=== PATIENT | female | born 1970 | race Caucasian/White ===

== ENCOUNTER 2018-05-07 17:50 | Emergency (ER) | payer MEDICAID ==
[~2018-05-07] VITALS: Ht 172.7 cm; Wt 136.0 kg
[~2018-05-07 17:50] MED LIST: BAC10T PO; CLIN150C2 PO; DEXL60CA3 PO; FERR325T28 PO; FURO-150 PO; IBUP-1984 PO; LEVA15HF4 IH; METF500T7 PO; ONDA4TAB9 PO; POTA8TAB46 PO; PRAM1TAB4 PO; TRAM50TA2 PO; TRIA10PO3 MC; VENL-190 PO
[2018-05-07] MEDS ORDERED: HYDR28CR14 TOP (18:05)
== END 2018-05-07 18:18 | disposition home or self-care (01) ==
LOC: ER 17:51
DX: R21 Rash and other nonspecific skin eruption (principal); L25.9 Unspecified contact dermatitis, unspecified cause; J44.9 Chronic obstructive pulmonary disease, unspecified; E11.9 Type 2 diabetes mellitus without complications; F12.90 Cannabis use, unspecified, uncomplicated; Z79.2 Long term (current) use of antibiotics; Z79.899 Other long term (current) drug therapy
CPT/HCPCS: 99282

== ENCOUNTER 2018-07-07 13:35 | Emergency (ER) | payer MEDICAID ==
[~2018-07-07] VITALS: Ht 172.7 cm; Wt 131.8 kg
[~2018-07-07 13:35] MED LIST changes: +HYDR28CR14 TOP
[2018-07-07 14:43] VITALS: BP 129/69
== END 2018-07-07 17:02 | disposition left against medical advice (07) ==
LOC: ER 13:36
DX: M54.5 Low back pain (principal); Z53.21 Procedure and treatment not carried out due to patient leaving prior to being seen by health care provider

== ENCOUNTER 2021-12-06 15:47 | Emergency (ER) | payer MEDICAID ==
[~2021-12-06] VITALS: Ht 172.7 cm; Wt 145.4 kg
[~2021-12-06 15:47] MED LIST changes: +METF-900 PO; -METF500T7 PO
[2021-12-06] MEDS ORDERED: insulin regular, human 10 units/0.1 ml syringe IV ONE ×3 (16:25→18:05)
[2021-12-06] MEDS ORDERED: normal saline 1000ML IV soln IVB ONE ×3 (16:25→18:05)
[2021-12-06 16:37] LABS: BASOPHILS # (AUTO) 0.1 X10'3 (0-0.2); BASOPHILS % (AUTO) 0.7 % (0-1); EOSINOPHILS # (AUTO) 0.1 X10'3 (0-0.9); EOSINOPHILS % (AUTO) 1.5 % (0-6); HEMATOCRIT 45.6 % (35.0-45.0); LYMPHOCYTES # (AUTO) 2.8 X10'3 (1.1-4.8); LYMPHOCYTES % (AUTO) 38.3 % (21-51); MEAN CORPUSCULAR HEMOGLOBIN 27.1 PG (27.0-31.0); MEAN CORPUSCULAR HGB CONC 32.8 g/dL (33.0-36.5); MEAN CORPUSCULAR VOLUME 82.6 FL (78-98); MEAN PLATELET VOLUME 8.9 FL (7.4-10.4); MONOCYTES # (AUTO) 0.5 X10'3 (0-0.9); MONOCYTES % (AUTO) 6.2 % (2-12); NEUTROPHILS # (AUTO) 3.9 X10'3 (1.8-7.7); NEUTROPHILS % (AUTO) 53.3 % (42-75); PLATELET COUNT 200 X10'3 (140-440); RED BLOOD COUNT 5.51 X10'6 (4.20-5.60); RED CELL DISTRIBUTION WIDTH 15.1 % (11.5-14.5); WHITE BLOOD COUNT 7.3 X10'3 (4.5-11.0)
[2021-12-06 16:45] LABS: ALANINE AMINOTRANSFERASE 26 U/L (12-78); ALBUMIN 3.4 G/DL (3.4-5.0); ALBUMIN/GLOBULIN RATIO 0.7 (1.1-1.5); ALKALINE PHOSPHATASE 192 IU/L (46-116); ANION GAP 10 (8-16); ASPARTATE AMINO TRANSFERASE 20 U/L (10-37); BILIRUBIN,TOTAL 0.4 MG/DL (0.1-1.0); BLOOD UREA NITROGEN 15 MG/DL (7-18); BUN/CREATININE RATIO 12.2 (6.6-38.0); CALCIUM 9.9 MG/DL (8.5-10.1); CHLORIDE 94 MMOL/L (99-107); CREATININE 1.23 MG/DL (0.40-0.90); POTASSIUM 4.4 MMOL/L (3.5-5.1); SODIUM 132 MMOL/L (135-145); TOTAL CARBON DIOXIDE 27.7 MMOL/L (24-32); TOTAL PROTEIN 8.5 G/DL (6.4-8.2); eGFR 46 ML/MIN
[2021-12-06 17:02] LABS: GLUCOSE 754 MG/DL (70-104)
[2021-12-06 17:02] LABS: CLARITY,URINE CLEAR (Clear); COLOR,URINE YELLOW (Yellow); GLUCOSE, URINE >=1000 mg/dl (Neg); KETONES,URINE NEGATIVE (Neg); LEUKOCYTE ESTERASE ,URINE NEGATIVE (Neg); NITRITES, URINE NEGATIVE (Neg); OCCULT BLOOD,URINE NEGATIVE (Neg); PH,URINE 6.5 (4.8-8.0); PROTEIN,URINE TRACE mg/dl (Neg); UROBILINOGEN,URINE 0.2 E.U/dL (0.2-1.0)
[2021-12-06 17:05] LABS: UA COLLECTION TYPE CLN CATCH MIDSTREAM
[2021-12-06 17:07] LABS: MAGNESIUM 1.5 MG/DL (1.5-2.4)
[2021-12-06 17:08] LABS: SQUAMOUS EPITHELIAL CELL,UR MODERATE /LPF (FEW)
[2021-12-06 17:11] LABS: BACTERIA,URINE FEW /HPF (Neg); RBC,URINE NONE SEEN /HPF (0-2); YEAST MANY /HPF (NEGATIVE)
[2021-12-06 17:13] LABS: WBC,URINE 0-4 /HPF (0-4)
[2021-12-06] MEDS ORDERED: insulin glargine (Lantus) pen - multi-dose SQ ONE (17:25)
[2021-12-06] MEDS ORDERED: METF-436 PO (17:32)
[2021-12-06] MEDS ORDERED: INSU100V9 SQ (17:32)
[2021-12-06 18:59] VITALS: BP 137/90
== END 2021-12-06 19:57 | disposition home or self-care (01) ==
LOC: ER 15:48
DX: E11.65 Type 2 diabetes mellitus with hyperglycemia (principal); R06.02 Shortness of breath; E78.00 Pure hypercholesterolemia, unspecified; J44.9 Chronic obstructive pulmonary disease, unspecified; F12.90 Cannabis use, unspecified, uncomplicated; Z72.89 Other problems related to lifestyle; Z79.4 Long term (current) use of insulin; Z79.899 Other long term (current) drug therapy
CPT/HCPCS: 36415; 80053; 81001; 82948; 83735; 85025; 96361; 96372; 96374; 96376; 99284; J1815; J7030

== ENCOUNTER 2021-12-08 15:49 | Emergency (ER) | payer MEDICAID ==
[~2021-12-08] VITALS: Ht 172.7 cm; Wt 140.9 kg
[~2021-12-08 15:49] MED LIST changes: +INSU100V9 SQ; +METF-436 PO
[2021-12-08 16:17] VITALS: BP 120/91
[2021-12-08 16:50] LABS: BASOPHILS # (AUTO) 0.1 X10'3 (0-0.2); BASOPHILS % (AUTO) 1.1 % (0-1); EOSINOPHILS # (AUTO) 0.2 X10'3 (0-0.9); EOSINOPHILS % (AUTO) 1.9 % (0-6); HEMATOCRIT 40.9 % (35.0-45.0); HEMOGLOBIN 13.4 g/dl (12.0-16.0); LYMPHOCYTES # (AUTO) 3.2 X10'3 (1.1-4.8); LYMPHOCYTES % (AUTO) 35.7 % (21-51); MEAN CORPUSCULAR HEMOGLOBIN 26.5 PG (27.0-31.0); MEAN CORPUSCULAR HGB CONC 32.7 g/dL (33.0-36.5); MEAN CORPUSCULAR VOLUME 81.1 FL (78-98); MEAN PLATELET VOLUME 8.8 FL (7.4-10.4); MONOCYTES # (AUTO) 0.6 X10'3 (0-0.9); MONOCYTES % (AUTO) 7.2 % (2-12); NEUTROPHILS # (AUTO) 4.9 X10'3 (1.8-7.7); NEUTROPHILS % (AUTO) 54.1 % (42-75); PLATELET COUNT 216 X10'3 (140-440); RED BLOOD COUNT 5.04 X10'6 (4.20-5.60); RED CELL DISTRIBUTION WIDTH 15.3 % (11.5-14.5)
[2021-12-08 17:04] LABS: ALANINE AMINOTRANSFERASE 21 U/L (12-78); ALBUMIN 3.2 G/DL (3.4-5.0); ALBUMIN/GLOBULIN RATIO 0.7 (1.1-1.5); ALKALINE PHOSPHATASE 133 IU/L (46-116); ANION GAP 11 (8-16); ASPARTATE AMINO TRANSFERASE 15 U/L (10-37); BILIRUBIN,TOTAL 0.5 MG/DL (0.1-1.0); BLOOD UREA NITROGEN 14 MG/DL (7-18); BUN/CREATININE RATIO 12.4 (6.6-38.0); CALCIUM 9.1 MG/DL (8.5-10.1); CHLORIDE 99 MMOL/L (99-107); CREATININE 1.13 MG/DL (0.40-0.90); SODIUM 133 MMOL/L (135-145); TOTAL CARBON DIOXIDE 22.7 MMOL/L (24-32); TOTAL PROTEIN 7.8 G/DL (6.4-8.2); eGFR 51 ML/MIN
[2021-12-08 17:08] LABS: GLUCOSE 480 MG/DL (70-104)
== END 2021-12-08 20:04 | disposition left against medical advice (07) ==
LOC: ER 15:49
DX: M25.561 Pain in right knee (principal); Z53.21 Procedure and treatment not carried out due to patient leaving prior to being seen by health care provider
CPT/HCPCS: 36415; 80053; 82948; 85025

== ENCOUNTER 2022-01-09 07:14 | Emergency (ER) | payer MEDICAID ==
[~2022-01-09] VITALS: Ht 172.7 cm; Wt 129.6 kg
[2022-01-09] MEDS ORDERED: acetaminophen 325mg tablet PO STA (08:12)
[2022-01-09] MEDS ORDERED: ketorolac trometh. 30mg/ml inj. IV ONE (08:15)
[2022-01-09] MEDS ORDERED: normal saline 1000ML IV soln IV ONE (08:15)
[2022-01-09 10:22] LABS: BASOPHILS % (AUTO) 0.5 % (0-1); EOSINOPHILS # (AUTO) 0.1 X10'3 (0-0.9); EOSINOPHILS % (AUTO) 1.2 % (0-6); HEMATOCRIT 40.1 % (35.0-45.0); HEMOGLOBIN 13.4 g/dl (12.0-16.0); LYMPHOCYTES # (AUTO) 2.4 X10'3 (1.1-4.8); LYMPHOCYTES % (AUTO) 25.9 % (21-51); MEAN CORPUSCULAR HEMOGLOBIN 27.3 PG (27.0-31.0); MEAN CORPUSCULAR HGB CONC 33.3 g/dL (33.0-36.5); MEAN CORPUSCULAR VOLUME 81.9 FL (78-98); MEAN PLATELET VOLUME 8.3 FL (7.4-10.4); MONOCYTES # (AUTO) 0.7 X10'3 (0-0.9); MONOCYTES % (AUTO) 7.6 % (2-12); NEUTROPHILS % (AUTO) 64.8 % (42-75); PLATELET COUNT 182 X10'3 (140-440); RED CELL DISTRIBUTION WIDTH 15.2 % (11.5-14.5); WHITE BLOOD COUNT 9.3 X10'3 (4.5-11.0)
[2022-01-09 10:35] LABS: ALANINE AMINOTRANSFERASE 16 U/L (12-78); ALBUMIN 2.9 G/DL (3.4-5.0); ALBUMIN/GLOBULIN RATIO 0.7 (1.1-1.5); ALKALINE PHOSPHATASE 99 IU/L (46-116); ANION GAP 8 (8-16); ASPARTATE AMINO TRANSFERASE 13 U/L (10-37); BILIRUBIN,TOTAL 0.3 MG/DL (0.1-1.0); BLOOD UREA NITROGEN 9 MG/DL (7-18); BUN/CREATININE RATIO 14.8 (6.6-38.0); CALCIUM 8.9 MG/DL (8.5-10.1); CHLORIDE 105 MMOL/L (99-107); CREATININE 0.61 MG/DL (0.40-0.90); GLUCOSE 141 MG/DL (70-104); MAGNESIUM 1.3 MG/DL (1.5-2.4); POTASSIUM 3.8 MMOL/L (3.5-5.1); SODIUM 140 MMOL/L (135-145); TOTAL CARBON DIOXIDE 26.9 MMOL/L (24-32); TOTAL PROTEIN 7.3 G/DL (6.4-8.2); eGFR > 90 ML/MIN
[2022-01-09 13:39] VITALS: BP 125/86
== END 2022-01-09 13:50 | disposition home or self-care (01) ==
LOC: ER 07:15
DX: B34.9 Viral infection, unspecified (principal); Z20.822 Contact with and (suspected) exposure to COVID-19; E78.00 Pure hypercholesterolemia, unspecified; E11.9 Type 2 diabetes mellitus without complications; F17.200 Nicotine dependence, unspecified, uncomplicated; F12.10 Cannabis abuse, uncomplicated; F15.10 Other stimulant abuse, uncomplicated; Z79.1 Long term (current) use of non-steroidal anti-inflammatories (NSAID); Z79.82 Long term (current) use of aspirin; Z79.899 Other long term (current) drug therapy
CPT/HCPCS: 36415; 71045; 80053; 83735; 85025; 87081; 87502; 87503; 87635; 87880; 99284; C9803

== ENCOUNTER 2023-01-30 16:15 | Emergency (ER) | payer MEDICAID ==
[~2023-01-30] VITALS: Ht 172.7 cm; Wt 125.5 kg
[2023-01-30 17:57] VITALS: BP 99/51; PULSE 88; RESP 18; O2SAT 94
[2023-01-30] MEDS ORDERED: cyclobenzaprine 10mg tablet PO ONE (19:25)
[2023-01-30] MEDS ORDERED: ketorolac trometh. 30mg/ml inj. IV ONE (19:25)
[2023-01-30] MEDS ORDERED: LIDOcaine 5% patch TP STA (19:25)
[2023-01-30] MEDS ORDERED: CYCL-1 PO (19:27)
[2023-01-30] MEDS ORDERED: IBUP-1986 PO (19:27)
== END 2023-01-30 20:02 | disposition home or self-care (01) ==
LOC: ER 16:16
DX: G89.29 Other chronic pain (principal); M54.59 Other low back pain; Z79.899 Other long term (current) drug therapy; Z79.1 Long term (current) use of non-steroidal anti-inflammatories (NSAID); Z79.2 Long term (current) use of antibiotics
CPT/HCPCS: 82948; 96374; 99284; J1885; 96372; A4615

== ENCOUNTER 2023-06-23 07:37 | Emergency (ER) | payer MEDICAID ==
[~2023-06-23] VITALS: Ht 172.7 cm; Wt 126.5 kg
[~2023-06-23 07:37] MED LIST changes: +CYCL-1 PO; +IBUP-1986 PO
[2023-06-23] MEDS ORDERED: DOXY-457 PO (08:35)
[2023-06-23] MEDS ORDERED: IBUP-1984 PO (08:35)
[2023-06-23 09:09] VITALS: BP 134/78; PULSE 90; RESP 16; TEMP 98.2; O2SAT 92
== END 2023-06-23 09:09 | disposition home or self-care (01) ==
LOC: ER 07:38
DX: S52.124A Nondisplaced fracture of head of right radius, initial encounter for closed fracture (principal); L03.031 Cellulitis of right toe; E78.00 Pure hypercholesterolemia, unspecified; J44.9 Chronic obstructive pulmonary disease, unspecified; G89.29 Other chronic pain; F12.90 Cannabis use, unspecified, uncomplicated; F15.90 Other stimulant use, unspecified, uncomplicated; Z56.0 Unemployment, unspecified; Z59.00 Homelessness unspecified; Z79.899 Other long term (current) drug therapy; Z79.2 Long term (current) use of antibiotics; W01.0XXA Fall on same level from slipping, tripping and stumbling without subsequent striking against object, initial encounter; Z91.81 History of falling; Y93.89 Activity, other specified; Y92.89 Other specified places as the place of occurrence of the external cause; Y99.8 Other external cause status
CPT/HCPCS: 29105; 73080; 99284; A4565; A6449

== ENCOUNTER 2023-06-27 10:19 | Emergency (ER) | payer MEDICAID ==
[~2023-06-27] VITALS: Ht 172.7 cm; Wt 125.0 kg
[~2023-06-27 10:19] MED LIST changes: +DOXY-457 PO
[2023-06-27 10:27] VITALS: TEMP 96.8
[2023-06-27] MEDS ORDERED: ketorolac trometh. 30mg/ml inj. IM ONE (12:55)
[2023-06-27 13:15] VITALS: BP 129/69; PULSE 72; RESP 18; O2SAT 96
== END 2023-06-27 18:04 | disposition home or self-care (01) ==
LOC: ER 10:19
DX: S52.124A Nondisplaced fracture of head of right radius, initial encounter for closed fracture (principal); S63.501A Unspecified sprain of right wrist, initial encounter; E78.00 Pure hypercholesterolemia, unspecified; J44.9 Chronic obstructive pulmonary disease, unspecified; E11.9 Type 2 diabetes mellitus without complications; G89.29 Other chronic pain; F12.90 Cannabis use, unspecified, uncomplicated; F15.90 Other stimulant use, unspecified, uncomplicated; Z56.0 Unemployment, unspecified; Z59.00 Homelessness unspecified; Z79.899 Other long term (current) drug therapy; Z79.2 Long term (current) use of antibiotics; W01.0XXA Fall on same level from slipping, tripping and stumbling without subsequent striking against object, initial encounter; Y93.89 Activity, other specified; Y92.89 Other specified places as the place of occurrence of the external cause; Y99.8 Other external cause status
CPT/HCPCS: 29105; 73090; 73110; 96372; 99284; J1885; A4565; A6446; A6449

== ENCOUNTER 2023-10-04 07:58 | Emergency (ER) | payer MEDICAID ==
[~2023-10-04] VITALS: Ht 167.6 cm; Wt 132.0 kg
[~2023-10-04 07:58] MED LIST changes: -DOXY-457 PO
[2023-10-04 08:10] VITALS: BP 150/90; TEMP 98.8
[2023-10-04 08:39] LABS: BASOPHILS % (AUTO) 0.6 % (0-1); EOSINOPHILS # (AUTO) 0.3 X10'3 (0-0.9); EOSINOPHILS % (AUTO) 4.6 % (0-6); HEMATOCRIT 36.5 % (35.0-45.0); HEMOGLOBIN 11.9 g/dl (12.0-16.0); LYMPHOCYTES # (AUTO) 2.1 X10'3 (1.1-4.8); LYMPHOCYTES % (AUTO) 28.4 % (21-51); MEAN CORPUSCULAR HEMOGLOBIN 26.4 PG (27.0-31.0); MEAN CORPUSCULAR HGB CONC 32.7 g/dL (33.0-36.5); MEAN CORPUSCULAR VOLUME 80.8 FL (78-98); MEAN PLATELET VOLUME 8.1 FL (7.4-10.4); MONOCYTES # (AUTO) 0.6 X10'3 (0-0.9); NEUTROPHILS # (AUTO) 4.3 X10'3 (1.8-7.7); NEUTROPHILS % (AUTO) 58.4 % (42-75); PLATELET COUNT 157 X10'3 (140-440); RED BLOOD COUNT 4.51 X10'6 (4.20-5.60); RED CELL DISTRIBUTION WIDTH 15.2 % (11.5-14.5); WHITE BLOOD COUNT 7.4 X10'3 (4.5-11.0)
[2023-10-04 08:59] LABS: D-DIMER 0.32 MG/L FEU (0-0.50)
[2023-10-04] MEDS: magnesium 2GM in 50ml NS 50 ML IV ONE (09:09)
[2023-10-04] MEDS: methylPREDNISolone sod succ 125mg/2ml vial IV ONE (09:09)
[2023-10-04 09:15] LABS: ALBUMIN 2.6 G/DL (3.4-5.0); ANION GAP 10 (8-16); BLOOD UREA NITROGEN 10 MG/DL (7-18); BUN/CREATININE RATIO 11.9 (10.0-20.0); CALCIUM 8.9 MG/DL (8.5-10.1); CHLORIDE 107 MMOL/L (99-107); CREATININE 0.84 MG/DL (0.40-0.90); GLUCOSE 176 MG/DL (70-104); POTASSIUM 3.9 MMOL/L (3.5-5.1); PRO BRAIN NATRIURETIC PEPTIDE 231 PG/ML (0-125); SODIUM 146 MMOL/L (135-145); TOTAL CARBON DIOXIDE 29.3 MMOL/L (24-32); eCRCL 73 ML/MIN; eGFR 71 ML/MIN
[2023-10-04] MEDS: ipratropium/albuterol 3ml nebule NEB ONE (09:21)
[2023-10-04] MEDS: albuterol 2.5 MG/3 ML nebule NEB ONE (09:21)
[2023-10-04 09:28] VITALS: PULSE 96; PULSE 98; RESP 20; O2SAT 91; O2SAT 92; O2SAT 96
[2023-10-04] MEDS ORDERED: LORazepam 2 mg/ml vial IV ONE (10:50)
[2023-10-04] MEDS ORDERED: PRED20TA PO (10:51)
[2023-10-04] MEDS ORDERED: ALB0.5UD NEB (10:51)
[2023-10-04 11:23] VITALS: PULSE 93; RESP 18; RESP 20; O2SAT 96; O2SAT 97
[2023-10-04] MEDS: pramipexole 0.25mg tablet PO STA (11:38)
[2023-10-04 11:39] VITALS: O2SAT 92
== END 2023-10-04 11:41 | disposition home or self-care (01) ==
LOC: ER 07:59
DX: J44.1 Chronic obstructive pulmonary disease with (acute) exacerbation (principal); Z20.822 Contact with and (suspected) exposure to COVID-19; E78.00 Pure hypercholesterolemia, unspecified; E11.9 Type 2 diabetes mellitus without complications; F12.90 Cannabis use, unspecified, uncomplicated; F15.90 Other stimulant use, unspecified, uncomplicated; Z79.899 Other long term (current) drug therapy; Z79.1 Long term (current) use of non-steroidal anti-inflammatories (NSAID); Z79.2 Long term (current) use of antibiotics
CPT/HCPCS: 36415; 71045; 80048; 83880; 84484; 85025; 85379; 87811; 93005; 94640; 96365; 96366; 96375; 99285; J2930; J3475; 94760

== ENCOUNTER 2023-11-29 09:07 | Emergency (ER) | payer MEDICAID ==
[~2023-11-29] VITALS: Ht 172.7 cm; Wt 122.0 kg
[2023-11-29 09:11] VITALS: BP 144/74; PULSE 86; RESP 16; TEMP 98.4; O2SAT 92
[2023-11-29 10:07] LABS: BASOPHILS # (AUTO) 0.1 X10'3 (0-0.2); BASOPHILS % (AUTO) 0.7 % (0-1); EOSINOPHILS # (AUTO) 0.3 X10'3 (0-0.9); EOSINOPHILS % (AUTO) 3.1 % (0-6); HEMATOCRIT 38.4 % (35.0-45.0); HEMOGLOBIN 12.7 g/dl (12.0-16.0); LYMPHOCYTES # (AUTO) 2.9 X10'3 (1.1-4.8); LYMPHOCYTES % (AUTO) 34.1 % (21-51); MEAN CORPUSCULAR HEMOGLOBIN 26.8 PG (27.0-31.0); MEAN CORPUSCULAR HGB CONC 33.2 g/dL (33.0-36.5); MEAN CORPUSCULAR VOLUME 80.8 FL (78-98); MEAN PLATELET VOLUME 8.3 FL (7.4-10.4); MONOCYTES # (AUTO) 0.4 X10'3 (0-0.9); MONOCYTES % (AUTO) 5.2 % (2-12); NEUTROPHILS # (AUTO) 4.9 X10'3 (1.8-7.7); NEUTROPHILS % (AUTO) 56.9 % (42-75); PLATELET COUNT 218 X10'3 (140-440); RED BLOOD COUNT 4.75 X10'6 (4.20-5.60); RED CELL DISTRIBUTION WIDTH 16.9 % (11.5-14.5); WHITE BLOOD COUNT 8.6 X10'3 (4.5-11.0)
[2023-11-29 10:25] LABS: ALANINE AMINOTRANSFERASE 19 U/L (12-78); ALBUMIN 3.2 G/DL (3.4-5.0); ALBUMIN/GLOBULIN RATIO 0.7 (1.1-1.5); ALKALINE PHOSPHATASE 114 IU/L (46-116); ANION GAP 9 (8-16); ASPARTATE AMINO TRANSFERASE 14 U/L (10-37); BILIRUBIN,TOTAL 0.4 MG/DL (0.1-1.0); BLOOD UREA NITROGEN 9 MG/DL (7-18); BUN/CREATININE RATIO 12.3 (10.0-20.0); C-REACTIVE PROTEIN 0.42 MG/DL (0.0-0.5); CALCIUM 9.5 MG/DL (8.5-10.1); CHLORIDE 106 MMOL/L (99-107); CREATININE 0.73 MG/DL (0.40-0.90); GLUCOSE 137 MG/DL (70-104); POTASSIUM 3.5 MMOL/L (3.5-5.1); SODIUM 142 MMOL/L (135-145); TOTAL CARBON DIOXIDE 26.8 MMOL/L (24-32); TOTAL PROTEIN 7.7 G/DL (6.4-8.2); eCRCL 91 ML/MIN; eGFR 84 ML/MIN
[2023-11-29 10:28] LABS: APTT 26 SECONDS (22-32); PROTHROMBIN TIME 10.7 SECONDS (9.0-12.0)
== END 2023-11-29 22:02 | disposition left against medical advice (07) ==
LOC: ER 09:08
DX: M25.561 Pain in right knee (principal); Z53.21 Procedure and treatment not carried out due to patient leaving prior to being seen by health care provider
CPT/HCPCS: 36415; 73564; 80053; 83605; 85025; 85610; 85651; 85730; 86140; 87040

== ENCOUNTER 2024-01-26 21:23 | Emergency (ER) | payer MEDICAID ==
[~2024-01-26] VITALS: Ht 172.7 cm; Wt 125.0 kg
[2024-01-26 21:45] VITALS: TEMP 98.3
[2024-01-26] MEDS: ondansetron 4mg rapidly disintigrating tab PO ONE (23:47)
[2024-01-26] MEDS: HYDROcodone/acetaminophen 5mg/325mg tablet PO ONE (23:49)
[2024-01-26] MEDS: ketorolac tromethamine 15mg/ml inj. IV ONE (23:49)
[2024-01-27] MEDS ORDERED: ACET-1025 PO (00:11)
[2024-01-27] MEDS ORDERED: IBUP-1984 PO (00:11)
[2024-01-27] MEDS ORDERED: CYCL-1 PO (00:11)
[2024-01-27] MEDS: orphenadrine citrate 60mg/2ml inj. IM ONE (00:37)
[2024-01-27 02:18] VITALS: BP 158/85; PULSE 77; RESP 21; O2SAT 91
== END 2024-01-27 02:17 | disposition home or self-care (01) ==
LOC: ER 21:24
DX: M54.50 Low back pain, unspecified (principal); E78.00 Pure hypercholesterolemia, unspecified; J45.909 Unspecified asthma, uncomplicated; E11.9 Type 2 diabetes mellitus without complications; G89.29 Other chronic pain; M54.9 Dorsalgia, unspecified; F12.90 Cannabis use, unspecified, uncomplicated; F15.90 Other stimulant use, unspecified, uncomplicated; Z56.0 Unemployment, unspecified; Z59.00 Homelessness unspecified; Z79.899 Other long term (current) drug therapy; Z79.1 Long term (current) use of non-steroidal anti-inflammatories (NSAID); Z79.84 Long term (current) use of oral hypoglycemic drugs; Z79.4 Long term (current) use of insulin
CPT/HCPCS: 96372; 96374; 99284; J1885; J2360

== ENCOUNTER 2024-02-02 17:40 | Emergency (ER) | payer MEDICAID ==
[~2024-02-02] VITALS: Ht 172.7 cm; Wt 122.7 kg
[2024-02-02] MEDS: cyclobenzaprine 10mg tablet PO ONE (17:53)
[2024-02-02] MEDS: ketorolac tromethamine 15mg/ml inj. IM ONE (18:03)
[2024-02-02] MEDS: LIDOcaine 5% patch TP SCH (18:04)
[2024-02-02] MEDS: traMADol 50MG tablet PO ONE (18:06)
[2024-02-02] MEDS ORDERED: NAPR-56 PO (18:30)
[2024-02-02] MEDS ORDERED: LIDO700A47 TOP (18:30)
[2024-02-02] MEDS ORDERED: METH-798 PO (18:30)
[2024-02-02 18:56] VITALS: BP 164/97; PULSE 89; RESP 18; TEMP 98; O2SAT 97
== END 2024-02-02 19:01 | disposition home or self-care (01) ==
LOC: ER 17:41
DX: G89.29 Other chronic pain (principal); M54.50 Low back pain, unspecified; E78.00 Pure hypercholesterolemia, unspecified; J44.9 Chronic obstructive pulmonary disease, unspecified; E11.9 Type 2 diabetes mellitus without complications; F12.90 Cannabis use, unspecified, uncomplicated; F15.90 Other stimulant use, unspecified, uncomplicated; Z56.0 Unemployment, unspecified; Z59.00 Homelessness unspecified; Z79.899 Other long term (current) drug therapy; Z79.2 Long term (current) use of antibiotics; Z79.1 Long term (current) use of non-steroidal anti-inflammatories (NSAID); Z79.84 Long term (current) use of oral hypoglycemic drugs; Z79.4 Long term (current) use of insulin
CPT/HCPCS: 96372; 99284; J1885

== ENCOUNTER 2024-02-03 17:27 | Emergency (ER) | payer MEDICAID ==
[~2024-02-03] VITALS: Ht 172.7 cm; Wt 122.7 kg
[~2024-02-03 17:27] MED LIST changes: +LIDO700A47 TOP; +METH-798 PO; +NAPR-56 PO
[2024-02-03 19:00] VITALS: BP 132/78; PULSE 101; RESP 20; TEMP 103.2; O2SAT 98
[2024-02-03] MEDS: acetaminophen 325mg tablet PO ONE (19:09)
[2024-02-03 19:55] LABS: BILIRUBIN,URINE NEGATIVE (Neg); CLARITY,URINE SLIGHTLY CLOUDY (Clear); COLOR,URINE YELLOW (Yellow); GLUCOSE, URINE NEGATIVE (Neg); KETONES,URINE NEGATIVE (Neg); LEUKOCYTE ESTERASE ,URINE NEGATIVE (Neg); NITRITES, URINE NEGATIVE (Neg); OCCULT BLOOD,URINE TRACE-INTACT (Neg); PROTEIN,URINE 100 mg/dl (Neg); UROBILINOGEN,URINE 0.2 E.U/dL (0.2-1.0)
[2024-02-03 19:57] LABS: UA COLLECTION TYPE CLN CATCH MIDSTREAM
[2024-02-03 20:10] LABS: BACTERIA,URINE 1+ /HPF (Neg); RBC,URINE 0-2 /HPF (0-2); WBC,URINE 0-4 /HPF (0-4)
[2024-02-03 20:11] LABS: MUCUS STRANDS FEW /LPF (Neg); SQUAMOUS EPITHELIAL CELL,UR MANY /LPF (FEW)
== END 2024-02-03 20:22 | disposition left against medical advice (07) ==
LOC: ER 17:28
DX: R50.9 Fever, unspecified (principal); M54.9 Dorsalgia, unspecified; Z53.21 Procedure and treatment not carried out due to patient leaving prior to being seen by health care provider
CPT/HCPCS: 81001

== ENCOUNTER 2024-03-03 04:36 | Emergency (ER) | payer MEDICAID ==
[~2024-03-03] VITALS: Ht 172.7 cm; Wt 122.7 kg
[2024-03-03 04:40] VITALS: BP 135/69; PULSE 80; RESP 19; TEMP 97.9; O2SAT 95
== END 2024-03-03 05:55 | disposition home or self-care (01) ==
LOC: ER 04:37
DX: B34.9 Viral infection, unspecified (principal); Z20.822 Contact with and (suspected) exposure to COVID-19; R05.9 Cough, unspecified; E78.00 Pure hypercholesterolemia, unspecified; J44.9 Chronic obstructive pulmonary disease, unspecified; E11.9 Type 2 diabetes mellitus without complications; G89.29 Other chronic pain; M54.9 Dorsalgia, unspecified; F12.90 Cannabis use, unspecified, uncomplicated; F15.90 Other stimulant use, unspecified, uncomplicated; Z79.1 Long term (current) use of non-steroidal anti-inflammatories (NSAID); Z79.2 Long term (current) use of antibiotics; Z79.899 Other long term (current) drug therapy; Z79.4 Long term (current) use of insulin
CPT/HCPCS: 36415; 87811; 99283

== ENCOUNTER 2024-03-24 11:29 | Emergency (ER) | payer MEDICAID ==
[~2024-03-24] VITALS: Ht 172.7 cm; Wt 117.0 kg
[~2024-03-24 11:29] MED LIST changes: -NAPR-56 PO
[2024-03-24] MEDS ORDERED: GUAI100L97 PO (12:55)
[2024-03-24 13:00] VITALS: BP 116/69; PULSE 90; RESP 17; TEMP 97.9; O2SAT 97
== END 2024-03-24 13:01 | disposition home or self-care (01) ==
LOC: ER 11:29
DX: J11.1 Influenza due to unidentified influenza virus with other respiratory manifestations (principal); Z20.822 Contact with and (suspected) exposure to COVID-19; B34.9 Viral infection, unspecified; E78.00 Pure hypercholesterolemia, unspecified; J44.9 Chronic obstructive pulmonary disease, unspecified; E11.9 Type 2 diabetes mellitus without complications; F12.90 Cannabis use, unspecified, uncomplicated; F15.90 Other stimulant use, unspecified, uncomplicated; Z79.1 Long term (current) use of non-steroidal anti-inflammatories (NSAID); Z79.2 Long term (current) use of antibiotics; Z79.899 Other long term (current) drug therapy; Z79.84 Long term (current) use of oral hypoglycemic drugs
CPT/HCPCS: 36415; 87811; 99283

== ENCOUNTER 2024-03-26 11:09 | Emergency (ER) | payer MEDICAID ==
[~2024-03-26] VITALS: Ht 172.7 cm; Wt 117.7 kg
[~2024-03-26 11:09] MED LIST changes: +GUAI100L97 PO
[2024-03-26] MEDS ORDERED: CEPH500C3 PO (12:54)
[2024-03-26] MEDS ORDERED: TERB250T89 PO (13:05)
[2024-03-26] MEDS ORDERED: terbinafine 250mg tablet PO SCH (13:05)
[2024-03-26] MEDS: cephalexin 250mg capsule PO ONE (13:34)
[2024-03-26] MEDS: terbinafine 250mg tablet PO ONE (13:35)
[2024-03-26 13:38] VITALS: BP 140/76; PULSE 80; RESP 15; TEMP 98.2; O2SAT 96
== END 2024-03-26 13:40 | disposition home or self-care (01) ==
LOC: ER 11:11
DX: L03.115 Cellulitis of right lower limb (principal); L03.116 Cellulitis of left lower limb; B35.1 Tinea unguium; E78.00 Pure hypercholesterolemia, unspecified; J44.9 Chronic obstructive pulmonary disease, unspecified; E11.9 Type 2 diabetes mellitus without complications; F12.90 Cannabis use, unspecified, uncomplicated; F15.90 Other stimulant use, unspecified, uncomplicated; Z79.1 Long term (current) use of non-steroidal anti-inflammatories (NSAID); Z79.2 Long term (current) use of antibiotics; Z79.899 Other long term (current) drug therapy; Z79.4 Long term (current) use of insulin
CPT/HCPCS: 99283

== ENCOUNTER 2024-04-06 08:35 | Emergency (ER) | payer MEDICAID ==
[~2024-04-06] VITALS: Ht 172.7 cm; Wt 116.3 kg
[~2024-04-06 08:35] MED LIST changes: +TERB250T89 PO
[2024-04-06 08:37] VITALS: BP 103/66; PULSE 78; RESP 20; TEMP 97.3; O2SAT 96
[2024-04-06] MEDS: LORazepam 1 MG tablet PO ONE (09:44)
[2024-04-06] MEDS: ketorolac trometh 30MG/ML vial 30 MG/ML VIAL IM ONE (09:44)
[2024-04-06] MEDS ORDERED: DIAZ5TAB PO (10:33)
== END 2024-04-06 10:39 | disposition home or self-care (01) ==
LOC: ER 08:35
DX: G89.29 Other chronic pain (principal); M54.9 Dorsalgia, unspecified; E78.00 Pure hypercholesterolemia, unspecified; E11.9 Type 2 diabetes mellitus without complications; J44.9 Chronic obstructive pulmonary disease, unspecified; F12.90 Cannabis use, unspecified, uncomplicated; F15.90 Other stimulant use, unspecified, uncomplicated; Z56.0 Unemployment, unspecified; Z59.00 Homelessness unspecified; Z79.899 Other long term (current) drug therapy; Z79.51 Long term (current) use of inhaled steroids; Z79.1 Long term (current) use of non-steroidal anti-inflammatories (NSAID); Z79.84 Long term (current) use of oral hypoglycemic drugs; Z79.4 Long term (current) use of insulin
CPT/HCPCS: 96372; 99283; J1885

== ENCOUNTER 2024-04-22 15:56 | Emergency (ER) | payer MEDICAID ==
[~2024-04-22] VITALS: Ht 172.7 cm; Wt 130.8 kg
[~2024-04-22 15:56] MED LIST changes: +DIAZ5TAB PO
[2024-04-22 20:35] LABS: BASOPHILS # (AUTO) 0.1 X10'3 (0-0.2); BASOPHILS % (AUTO) 0.8 % (0-1); EOSINOPHILS # (AUTO) 0.2 X10'3 (0-0.9); EOSINOPHILS % (AUTO) 2.8 % (0-6); HEMATOCRIT 34.2 % (35.0-45.0); HEMOGLOBIN 11.3 g/dl (12.0-16.0); LYMPHOCYTES # (AUTO) 2.5 X10'3 (1.1-4.8); MEAN CORPUSCULAR HEMOGLOBIN 27.7 PG (27.0-31.0); MEAN PLATELET VOLUME 8.4 FL (7.4-10.4); MONOCYTES # (AUTO) 0.6 X10'3 (0-0.9); MONOCYTES % (AUTO) 6.6 % (2-12); NEUTROPHILS # (AUTO) 5.3 X10'3 (1.8-7.7); NEUTROPHILS % (AUTO) 60.8 % (42-75); PLATELET COUNT 185 X10'3 (140-440); RED BLOOD COUNT 4.07 X10'6 (4.20-5.60); RED CELL DISTRIBUTION WIDTH 15.3 % (11.5-14.5); WHITE BLOOD COUNT 8.8 X10'3 (4.5-11.0)
[2024-04-22] MEDS: ipratropium/albuterol 3ml nebule NEB PRN (20:37)
[2024-04-22 20:38] VITALS: PULSE 71; RESP 22
[2024-04-22 20:43] VITALS: PULSE 79; RESP 20
[2024-04-22 21:06] LABS: ALANINE AMINOTRANSFERASE 16 U/L (12-78); ALBUMIN/GLOBULIN RATIO 0.7 (1.1-1.5); ALKALINE PHOSPHATASE 115 IU/L (46-116); ANION GAP 9 (8-16); ASPARTATE AMINO TRANSFERASE 13 U/L (10-37); BILIRUBIN,TOTAL 0.3 MG/DL (0.1-1.0); BLOOD UREA NITROGEN 10 MG/DL (7-18); CALCIUM 8.8 MG/DL (8.5-10.1); CHLORIDE 108 MMOL/L (99-107); CREATININE 0.83 MG/DL (0.40-0.90); GLUCOSE 96 MG/DL (70-104); POTASSIUM 3.5 MMOL/L (3.5-5.1); SODIUM 143 MMOL/L (135-145); TOTAL CARBON DIOXIDE 26.3 MMOL/L (24-32); TOTAL PROTEIN 7.5 G/DL (6.4-8.2); eCRCL 80 ML/MIN; eGFR 72 ML/MIN
[2024-04-22 21:43] VITALS: BP 152/72
[2024-04-22 21:48] VITALS: PULSE 70; RESP 18; TEMP 98.6; O2SAT 98
== END 2024-04-22 21:50 | disposition home or self-care (01) ==
LOC: ER 15:57
DX: I87.8 Other specified disorders of veins (principal); L03.115 Cellulitis of right lower limb; E78.00 Pure hypercholesterolemia, unspecified; J44.9 Chronic obstructive pulmonary disease, unspecified; E11.9 Type 2 diabetes mellitus without complications; G89.29 Other chronic pain; F12.90 Cannabis use, unspecified, uncomplicated; F15.90 Other stimulant use, unspecified, uncomplicated; Z79.1 Long term (current) use of non-steroidal anti-inflammatories (NSAID); Z79.2 Long term (current) use of antibiotics; Z79.899 Other long term (current) drug therapy; Z79.4 Long term (current) use of insulin; Z79.84 Long term (current) use of oral hypoglycemic drugs
CPT/HCPCS: 36415; 80053; 85025; 93971; 94640; 94760; 99284

== ENCOUNTER 2025-05-16 04:02 | Emergency (ER) | payer MEDICAID ==
[~2025-05-16] VITALS: Ht 172.7 cm; Wt 125.0 kg
[~2025-05-16 04:02] MED LIST changes: -TERB250T89 PO
[2025-05-16] MEDS ORDERED: IBUP-1984 PO (04:52)
[2025-05-16] MEDS ORDERED: ACET-2615 PO (04:52)
--- NOTE | 2025-05-16 04:53 | Physician Documentation ---
History of Present Illness ~ Chief Complaint: Shoulder pain Stated Complaint: RT SHOULDER PAIN Time Seen by MD: 04:09 Primary Medical Doctor: GARETH HPI Patient presents to the emergency room for right shoulder pain for the past five days. She feels she may have slept on it wrong. No falls or injuries. She has had nothing for the pain. Tetanus within 5 years?: Yes (2019) Medication Reconciliation Allergies: Coded Allergies: No Known Allergies (Unverified , 04/22/24) Scheduled Baclofen* (Lioresal*), 10 MG PO TID, (Reported) Clindamycin (Cleocin ), 300 MG PO Q6H, (Reported) Cyclobenzaprine* (Cyclobenzaprine*), 1 TAB PO Q8H Cyclobenzaprine* (Cyclobenzaprine*), 1 TAB PO Q8H Dexlansoprazole (Dexilant), 60 MG PO DAILY, (Reported) Diazepam (Valium), 1 TAB PO HS Ferrous Sulfate* (Ferrous Sulfate*), 325 MG PO BID Furosemide* (Lasix*), 20 MG PO TID, (Reported) Guaifenesin (Guaifenesin), 10 ML PO Q6H Hydrocortisone (hydrocortisone 1% cream), 1 APPLIC TOP Q12H Ibuprofen (Ibuprofen), 1 TAB PO Q8H Ibuprofen* (Motrin*), 800 MG PO BID, (Reported) Insulin Glargine,Hum.rec.anlog (Lantus), 10 UNIT SQ BID Lidocaine (Lidocaine), 1 PATCH TOP DAILY Metformin Hcl (Metformin Hcl), 2 TAB PO Q12H Metformin Hcl* (Metformin ER*), 500 MG PO BID, (Reported) Methocarbamol (Methocarbamol), 1 TAB PO Q8H Ondansetron* (Zofran Odt*), 4 MG PO Q6H Pramipexole Di-Hcl (Mirapex), 1 MG PO HS, (Reported) Tramadol HCl (Tramadol HCl), 50 MG PO QID, (Reported) Venlafaxine HCl (Effexor Xr), 225 MG PO DAILY, (Reported) Scheduled PRN Levalbuterol Tartrate* (Xopenex Inhaler*), 1 PUFF IH Q4H PRN, (Reported) Levalbuterol Tartrate* (Xopenex Inhaler*), 1 PUFF IH Q6H PRN, (Reported) Levalbuterol Tartrate* (Xopenex Inhaler*), 2 PUFF IH Q4H PRN, (Reported) Levalbuterol Tartrate* (Xopenex Inhaler*), 2 PUFF IH Q6H PRN, (Reported) Miscellaneous Medications Potassium Chloride (Klor-Con 8), 8 MEQ PO, (Reported) Triamcinolone (Triamcinolone), 10 GM MC, (Reported) Past Medical History Past Medical History: High Cholesterol, COPD, Diabetes, Chronic Pain, Chronic Back Pain, Extremity Fracture Past Surgical History: noncontributory Alcohol Use: None Drug Use: marijuana, methamphetamine Lives In: Homeless Occupation: unemployed Review of Systems ROS All review of systems negative except as per HPI Physical Exam Vital Signs: Temperature: 97.9, Source: Oral, Heart Rate: 91, Respiratory Rate: 20, BP: 121/74, Pulse Oximetry: 91, Weight: 125.000 Physical Exam General: Patient is sleeping, easily aroused in no acute distress. Head: Normocephalic and atraumatic. Eyes: Conjunctival normal. EOMI. PERRL. ENT: Mucous membranes moist. Neck: Supple, trachea is midline. Chest: Clear to auscultation bilaterally without rales, rhonchi, or wheezes. There is no accessory muscle use or retractions. Cardiac: RRR without murmurs, gallops, or rubs. Abd: Soft, nondistended, nontender, with normoactive bowel sounds. No guarding, rebound, or rigidity. Extremities: Pain with manipulation of right shoulder. Neurovascularly intact. Progress Results/Orders Results/Orders Orders - NAVEED HART MD Shoulder, Complete (Min 2 Vws) (05/16/25 04:16) Vital Signs 05/16/25 04:11 Temp 97.9 Pulse 91 Resp 20 B/P (MAP) 121/74 Pulse Ox 91 Laboratory Tests Test 05/16/25 04:24 Glucometer 193 H EKG/XRAY/CT/US/VASC/MRI Bone/Soft Tissue X-Ray (Ext.) : Additional Comment Shoulder series interpreted by myself is negative for fractures dislocations or foreign bodies Medical Decision Making Additional information obtaine: N/A Findings Patient presented to the emergency room with right shoulder pain that has per HPI. Differentials include but are not limited to fractures, dislocations, arthritis, ACS, impingement syndrome. X-ray is reassuring. Patient appeared comfortable upon entering the room however when she realized I was in the room she began crying. I have no doubt that patient is suffering from some degree of discomfort however he had he had not feel she is suffering from a medical emergency and he had not feel emergent labs are necessary. We will treat her pain acutely with instructions to follow up with her doctor showed any referrals be necessary. Strong radial pulses. Differential Dx:Considerations: Include: AC separation, Adhesive capsulitis, arthritis, Bicipital tendonitis, Calcific tendonitis, Cervical disc disease, Contusion, Dislocation, Fracture: Humerus, Fracture: Scapula, Fracture: Clavi diego, Gallbladder Disease, Hematoma, Impingement syndrome, Myocardial infarction, Neurovascular Injury, Rotator cuff injury, SC dislocation, Sprain, Subacromial bursitis, other Departure Disposition: 01 HOME / SELF CARE / HOMELESS Impression: Primary Impression: Shoulder pain Condition: Stable Discharge Instructions: Shoulder Pain Additional Instructions: You may take both ibuprofen and Tylenol together for pain. Follow up with your doctor for any referrals for physical therapy or additional imaging Referrals: NO PRIMARY CARE PROVIDER (PCP) Prescriptions Acetaminophen (Tylenol Extra Strength) 500 Mg Tablet 2 TAB PO Q6H PRN PRN for pain or fever for 3 Days, #30 TAB Prov: NAVEED HART MD 05/16/25 Ibuprofen* (Motrin*) 400 Mg Tablet 800 MG PO Q8H, #30 TAB Prov: NAVEED HART MD 05/16/25 Signature Scribe Signature: No scribe Attestation: The note accurately reflects work and decisions made by me.Naveed Hart MD 05/16/25 04:53 NAVEED HART MD May 16, 2025 04:53
[2025-05-16] MEDS: ibuprofen tablet 400 MG TABLET PO ONE (05:05)
[2025-05-16 05:10] VITALS: BP 121/74; PULSE 92; RESP 20; TEMP 97.9; O2SAT 95
--- NOTE | 2025-05-16 05:13 | RADIOLOGY REPORT ---
PROCEDURE: Right shoulder radiographs. INDICATION: shoulder pain TECHNIQUE: 2 views of the right shoulder were obtained. COMPARISON: None FINDINGS: There is no evidence of fracture or dislocation. The acromioclavicular joint space is narrowed. Glenohumeral joint space is maintained. There are calcifications overlying the joint space. IMPRESSION: 1. No fracture or dislocation. 2. Degenerative changes in the right glenohumeral and acromioclavicular joints.
== END 2025-05-16 05:08 | disposition home or self-care (01) ==
LOC: ER 04:03
DX: M25.511 Pain in right shoulder (principal); E11.9 Type 2 diabetes mellitus without complications; E78.00 Pure hypercholesterolemia, unspecified; J44.9 Chronic obstructive pulmonary disease, unspecified; F12.90 Cannabis use, unspecified, uncomplicated; F15.90 Other stimulant use, unspecified, uncomplicated
CPT/HCPCS: 73030; 82948; 99283